=== PATIENT | male | born 1990 | race Caucasian/White ===

== ENCOUNTER 2017-05-15 14:44 | Day surgery (SDC) | payer OTHER | END 2017-05-15 16:30 | disposition home or self-care (01) | LOC: FINFUSION 14:44 → FM/S 14:45 → FINFUSION 16:30 | PROVIDERS: ATTEND Emergency Medicine | PROC: 3E0337Z Introduction of Electrolytic and Water Balance Substance into Peripheral Vein, Percutaneous Approach (ICD-10-PCS; principal; 2017-05-15) | DX: G35 Multiple sclerosis (principal) | CPT/HCPCS: 96360; 96365; 96366 ==

== ENCOUNTER 2021-10-21 10:23 | Emergency (ER) | payer OTHER ==
[2021-10-21 10:44] VITALS: BP 131/89; PULSE 99; TEMP 98.1; BMI 36.2
== END 2021-10-21 11:17 | disposition home or self-care (01) ==
LOC: FER 10:23
DX: U07.1 COVID-19 (principal)
CPT/HCPCS: 0241U-QW; 99283-25

== ENCOUNTER 2021-10-21 16:02 | Emergency (ER) | payer OTHER ==
[2021-10-21] MEDS ORDERED: BEBTELOVIMAB (EUA) 175 MG/2 ML VIAL IVPUSH ONE (16:16)
[2021-10-21 16:26] VITALS: BP 125/89; PULSE 101; TEMP 98.5; BMI 36.2
== END 2021-10-21 19:10 | disposition home or self-care (01) ==
LOC: JER 16:02
DX: U07.1 COVID-19 (principal)
CPT/HCPCS: 99284-25; Q0222

== ENCOUNTER 2022-05-08 04:15 | Day surgery (SDC) | payer OTHER ==
[2022-05-07 10:12] VITALS: BMI 36.9
[2022-05-08] MEDS ORDERED: LIDOCAINE HCL/PF 1% SDV 5ML VIAL ONE (07:40)
[2022-05-08] MEDS ORDERED: BUPIVACAINE HCL/PF 0.5% (5MG/ML) 10 ML VIAL ONE (07:40)
[2022-05-08] MEDS ORDERED: LIDOCAINE 1% P/F 10 MG/ML VIAL INF ONE (12:12)
[2022-05-08] MEDS ORDERED: BUPIVACAINE HCL/PF 0.5% (5 MG/ML) 30 ML VIAL IJ ONE (12:13)
[2022-05-08 12:38] VITALS: RESP 20; TEMP 98.8
[2022-05-08 13:01] VITALS: BP 130/80; PULSE 88
== END 2022-05-08 13:02 | disposition home or self-care (01) ==
LOC: JASU-SURG 04:15
PROVIDERS: ATTEND Pain Medicine Pain Medicine
PROC: BR14YZZ Fluoroscopy of Cervical Facet Joint(s) using Other Contrast (ICD-10-PCS; 2022-05-08)
PROC: 3E0T3BZ Introduction of Anesthetic Agent into Peripheral Nerves and Plexi, Percutaneous Approach (ICD-10-PCS; principal; 2022-05-08 11:45)
DX: M54.12 Radiculopathy, cervical region (principal)
CPT/HCPCS: 76000-TC-FY

== ENCOUNTER 2022-12-19 22:59 | Emergency (ER) | payer OTHER ==
[2022-12-19 23:20] VITALS: BP 133/90; PULSE 100; RESP 16; TEMP 98; BMI 29.9
[2022-12-19 23:22] LABS: HEMATOCRIT 45.2 % (35.4-49); HEMOGLOBIN 15.7 G/dL (11.7-16.9); MCH 30.2 pg (25.7-33.7); MCHC 34.8 g/dl (32.0-35.9); MEAN PLT VOLUME 9.2 fl (7.5-11.1); PLATELET COUNT 200.9 10^3/uL (134-434); RDW 15.3 % (11.9-15.9); WHITE BLOOD COUNT 7.2 10^3/uL (4.0-10.8)
[2022-12-19 23:38] LABS: ALBUMIN 4.5 g/dl (3.4-5.0); BLOOD UREA NITROGEN 20.5 mg/dl (7-18); CALCIUM 9.5 mg/dl (8.5-10.1); POTASSIUM 4.1 mmol/L (3.5-5.1); SGOT/AST 14.2 U/L (15-37); SGPT/ALT 19.3 U/L (7-52); TOT PROT 6.7 g/dl (6.4-8.2)
[2022-12-19] MEDS ORDERED: SODIUM CHLORIDE 1,000 ML IV ONE (23:47)
[2022-12-20 01:22] LABS: BILIRUBIN,TOTAL 0.5 mg/dL (0.2-1)
== END 2022-12-20 01:21 | disposition home or self-care (01) ==
LOC: FER 22:59
PROC: 3E0337Z Introduction of Electrolytic and Water Balance Substance into Peripheral Vein, Percutaneous Approach (ICD-10-PCS; principal; 2022-12-19)
DX: R31.0 Gross hematuria (principal); R10.9 Unspecified abdominal pain
CPT/HCPCS: 36415; 74176-TC; 80053; 81003; 85027; 87086; 99284-25

== ENCOUNTER 2023-01-08 08:16 | Emergency (ER) | payer OTHER ==
[2023-01-08] MEDS ORDERED: SODIUM CHLORIDE 1,000 ML IV ONE ×2 (08:24→10:18)
[2023-01-08 09:08] VITALS: RESP 18; BMI 28.5
[2023-01-08 09:13] LABS: HEMATOCRIT 51.2 % (35.4-49); HEMOGLOBIN 17.3 G/dL (11.7-16.9); MCH 29.6 pg (25.7-33.7); MCHC 33.9 g/dl (32.0-35.9); MEAN CELL VOLUME 87.5 fl (80-96); MEAN PLT VOLUME 9.7 fl (7.5-11.1); PLATELET COUNT 210.3 10^3/uL (134-434); RBC 5.85 10^6/uL (4.00-5.60); RDW 15.7 % (11.9-15.9); WHITE BLOOD COUNT 9.9 10^3/uL (4.0-10.8)
[2023-01-08 09:19] LABS: PLATELET ESTIMATE ADEQUATE
[2023-01-08 09:25] LABS: ALBUMIN 4.5 g/dl (3.4-5.0); ALK PHOS 53 U/L (45-117); ANION GAP 7 MMOL/L (8-16); BILIRUBIN,TOTAL 0.8 mg/dl (0.2-1); CALCIUM 9.1 mg/dl (8.5-10.1); CHLORIDE 105 mmol/L (98-107); CO2 28 mmol/L (21-32); CREATININE 0.8 mg/dl (0.6-1.3); GLUCOSE,RANDOM 91 mg/dl (74-106); PHOSPHOROUS 3.35 (2.5-4.9); SGOT/AST 1404.3 U/L (15-37); SGPT/ALT 356.5 U/L (7-52); SODIUM 140 mmol/L (136-145); TOT PROT 6.4 g/dl (6.4-8.2)
[2023-01-08 13:34] LABS: ALBUMIN 4.5 g/dl (3.4-5.0); ALK PHOS 53 U/L (45-117); ANION GAP 7 MMOL/L (8-16); BILIRUBIN,TOTAL 0.8 mg/dl (0.2-1); BLOOD UREA NITROGEN 13.4 mg/dl (7-18); CALCIUM 8.8 mg/dl (8.5-10.1); CHLORIDE 103 mmol/L (98-107); CO2 28 mmol/L (21-32); CREATININE 0.8 mg/dl (0.6-1.3); GLUCOSE,RANDOM 86 mg/dl (74-106); SODIUM 138 mmol/L (136-145); TOT PROT 6.4 g/dl (6.4-8.2)
[2023-01-08 15:25] LABS: VENOUS BASE EXCESS 4.1 mmol/L (-2-2); VENOUS O2 SATURATION 44.5 % (70-80); VENOUS PCO2 53.2 mmHg (38-52); VENOUS PH 7.382 (7.310-7.410)
[2023-01-08 19:06] VITALS: BP 135/90; PULSE 89; TEMP 98
== END 2023-01-08 15:00 | disposition admitted as inpatient to this hospital (09) ==
LOC: FER 08:16
PROC: 3E0337Z Introduction of Electrolytic and Water Balance Substance into Peripheral Vein, Percutaneous Approach (ICD-10-PCS; principal; 2023-01-08)
PROC: 3E0337Z Introduction of Electrolytic and Water Balance Substance into Peripheral Vein, Percutaneous Approach (ICD-10-PCS; 2023-01-08)
DX: R82.998 Other abnormal findings in urine (principal); R51.9 Headache, unspecified; M79.10 Myalgia, unspecified site; R74.01 Elevation of levels of liver transaminase levels; M62.82 Rhabdomyolysis
CPT/HCPCS: 36415; 80053; 81003; 81015; 82550; 82553; 82803; 83735; 84100; 85027; 93005; 99285-25

== ENCOUNTER 2023-01-08 19:18 | Inpatient (IN) | payer OTHER ==
[2023-01-08] MEDS ORDERED: SODIUM CHLORIDE 0.9% 500 ML INFUS.BAG IV ONE (19:44)
[2023-01-08 20:09] LABS: HEMATOCRIT 48.2 % (35.4-49); HEMOGLOBIN 16.5 G/dL (11.7-16.9); MCH 30.2 pg (25.7-33.7); MCHC 34.2 g/dl (32.0-35.9); MEAN CELL VOLUME 88.2 fl (80-96); MEAN PLT VOLUME 9.3 fl (7.5-11.1); PLATELET COUNT 206.3 10^3/uL (134-434); RBC 5.46 10^6/uL (4.00-5.60); RDW 15.7 % (11.9-15.9); WHITE BLOOD COUNT 13.2 10^3/uL (4.0-10.8)
[2023-01-08 20:39] LABS: PLATELET ESTIMATE ADEQUATE
[2023-01-08 20:48] LABS: ALBUMIN 4.3 g/dl (3.4-5.0); ALK PHOS 51 U/L (45-117); ANION GAP 9 MMOL/L (8-16); BILIRUBIN,TOTAL 0.5 mg/dl (0.2-1); CALCIUM 9.1 mg/dl (8.5-10.1); CHLORIDE 105 mmol/L (98-107); CO2 28 mmol/L (21-32); CREATININE 0.8 mg/dl (0.6-1.3); GLUCOSE,RANDOM 86 mg/dl (74-106); POTASSIUM 4.2 mmol/L (3.5-5.1); SGOT/AST 1511.7 U/L (15-37); SGPT/ALT 412.6 U/L (7-52); SODIUM 142 mmol/L (136-145); TOT PROT 6.1 g/dl (6.4-8.2)
[2023-01-08] MEDS ORDERED: SODIUM CHLORIDE 1,000 ML IV SCH (22:15)
[2023-01-08 22:23] VITALS: BMI 32.2
[2023-01-09 08:42] LABS: BILIRUBIN,TOTAL 0.6 mg/dl (0.2-1); BLOOD UREA NITROGEN 9.4 mg/dl (7-18); CALCIUM 8.7 mg/dl (8.5-10.1); CREATININE 0.7 mg/dl (0.6-1.3); POTASSIUM 4.1 mmol/L (3.5-5.1); SGOT/AST 1182.3 U/L (15-37); SGPT/ALT 371.1 U/L (7-52); TOT PROT 5.7 g/dl (6.4-8.2)
[2023-01-09 12:42] LABS: BASO % 0.3 % (0-2.0); EOS % 4.5 % (0-4.5); HEMATOCRIT 43.2 % (35.4-49); HEMOGLOBIN 15.6 GM/dL (11.7-16.9); LYMPH % 15.4 % (8-40); MCH 30.2 pg (25.7-33.7); MEAN CELL VOLUME 83.8 fl (80-96); MEAN PLT VOLUME 9.8 fl (7.5-11.1); MONO % 8.9 % (3.8-10.2); NEUT % 70.9 % (42.8-82.8); PLATELET COUNT 212 10^3/uL (134-434); RBC 5.15 M/mm3 (4.00-5.60); RDW 14.9 % (11.9-15.9); WHITE BLOOD COUNT 9.6 K/mm3 (4.0-10.0)
[2023-01-09 14:44] LABS: ALBUMIN 4.5 g/dl (3.4-5.0); ALK PHOS 54 U/L (45-117); ANION GAP 9 MMOL/L (8-16); BILIRUBIN,TOTAL 0.6 mg/dl (0.2-1); CALCIUM 9.6 mg/dl (8.5-10.1); CHLORIDE 104 mmol/L (98-107); CO2 27 mmol/L (21-32); CREATININE 0.7 mg/dl (0.6-1.3); GLUCOSE,RANDOM 98 mg/dl (74-106); LDH 1681 U/L (84-246); SGOT/AST 1297.1 U/L (15-37); SGPT/ALT 433.2 U/L (7-52); SODIUM 140 mmol/L (136-145); TOT PROT 6.5 g/dl (6.4-8.2)
[2023-01-09 16:28] LABS: EPITHELIAL CELLS FEW /hpf
[2023-01-10 09:48] LABS: ALBUMIN 4.4 g/dl (3.4-5.0); BILIRUBIN,TOTAL 0.6 mg/dl (0.2-1); BLOOD UREA NITROGEN 8.6 mg/dl (7-18); CALCIUM 9.3 mg/dl (8.5-10.1); CREATININE 0.7 mg/dl (0.6-1.3); LDH 911 U/L (84-246); POTASSIUM 4.3 mmol/L (3.5-5.1); SGOT/AST 973.7 U/L (15-37); TOT PROT 6.2 g/dl (6.4-8.2)
[2023-01-10 21:42] LABS: URINE MUCUS FEW
[2023-01-11 06:07] VITALS: RESP 18
[2023-01-11] MEDS ORDERED: ONDANSETRON 4 MG/2 ML VIAL IM PRN (09:09)
[2023-01-11 09:37] VITALS: BP 127/83; PULSE 82; TEMP 98.1
[2023-01-11 10:41] LABS: CHLORIDE 110 mmol/L (98-107); POTASSIUM 4.3 mmol/L (3.5-5.1); SODIUM 144 mmol/L (136-145)
[2023-01-11 10:53] LABS: ANION GAP 7 MMOL/L (8-16); BLOOD UREA NITROGEN 7.1 mg/dL (7-18); CALCIUM 8.8 mg/dL (8.5-10.1); CO2 27 mmol/L (21-32); GLUCOSE,RANDOM 96 mg/dL (74-106)
[2023-01-11 10:54] LABS: ALBUMIN 3.5 g/dl (3.4-5.0)
[2023-01-11 10:56] LABS: CREATININE 0.8 mg/dL (0.55-1.3); SGOT/AST 686 U/L (15-37); SGPT/ALT 423 U/L (13-61)
[2023-01-11 10:57] LABS: TOT PROT 6.5 g/dl (6.4-8.2)
[2023-01-11 10:58] LABS: BILIRUBIN,TOTAL 0.4 mg/dL (0.2-1)
[2023-01-11 11:01] LABS: ALK PHOS 56 U/L (45-117); LDH 378 U/L (87-246)
[2023-01-11 22:09] LABS: MYOGLOBIN SERUM 2206 ng/mL (28-72)
== END 2023-01-11 18:53 | disposition home or self-care (01) | DRG 558 ==
LOC: FER 19:18 → FM/S 19:53
PROVIDERS: ADMIT Internal Medicine; ATTEND Family Medicine
DX: M62.82 Rhabdomyolysis (principal); G35 Multiple sclerosis; R74.01 Elevation of levels of liver transaminase levels; E66.9 Obesity, unspecified; Z68.32 Body mass index [BMI] 32.0-32.9, adult
CPT/HCPCS: 36415; 80053; 81003; 81015; 82550; 82553; 83615; 83874; 85025; 85027; 85651; 86140; 86645; 86708; 86709; 87340; 87522; 87799; 99285-25